=== PATIENT | female | born 1945 | race Caucasian/White ===

== ENCOUNTER 2023-06-07 19:38 | Observation (INO) | payer OTHER ==
[~2023-06-07 19:38] MED LIST: Iopamidol-370 76% 500 ML MDV (1 ML CHARGE) ONE
[2023-06-07] MEDS ORDERED: Acetaminophen 500 MG TAB ONE (20:29)
[2023-06-07 21:29] LABS: #Eosinphils 0.2 thou/uL (0.0-0.7); #Monocytes 0.6 thou/uL (0.11-0.59); #Neutrophils 4.4 thou/uL (1.40-6.50); %Basophils 0.5 % (0.0-1.0); %Eosinophils 1.9 % (0.0-10.0); %Lymphocytes 33.9 % (21.0-51.0); %Monocytes 7.8 % (0.0-10.0); %Neutrophils 55.6 % (42.0-75.0); Hematocrit 45.3 % (36.0-47.0); Hemoglobin 14.9 g/dL (12.0-16.0); Mean Corpuscular HGB CONC 32.9 g/dL (32.0-36.0); Mean Corpuscular Hemoglobin 30.8 pg (27.0-31.0); Mean Corpuscular Volume 93.6 fl (78.0-98.0); Mean Platelet Volume 10.8 fL (7.4-10.4); Platelet Count 219 10x3/uL (130-400); RBC Distribution Width 13.4 % (11.5-14.5); Red Blood Cell (RBC) Count 4.84 mill/uL (4.20-5.40)
[2023-06-07 21:56] LABS: Troponin I Less than 0.010 ng/mL (< 0.028)
[2023-06-07 22:32] LABS: Albumin 4.1 g/dL (3.4-4.8)
[2023-06-07 22:33] LABS: Chloride 105 mmol/L (98-107); Potassium 4.1 mmol/L (3.5-5.1); Sodium 138 mmol/L (136-145)
[2023-06-07 22:34] LABS: Calcium 9.4 mg/dL (7.8-10.44); Glucose 94 mg/dL (83-110)
[2023-06-07 22:35] LABS: Globulin 3.2 g/dL (2.4-3.5); Protein, Total 7.3 g/dL (5.8-8.1)
[2023-06-07 22:36] LABS: Anion Gap 15 mmol/L (10-20); Bilirubin, Total 0.5 mg/dL (0.2-1.2); Carbon Dioxide 22 mmol/L (23-31)
[2023-06-07 22:37] LABS: Alkaline Phosphatase 56 U/L (40-110)
[2023-06-07 22:38] LABS: Calc. Creatinine Clearance 0 mL/min (70-130); Estimated GFR 88
[2023-06-07 22:39] LABS: AST (SGOT) 17 U/L (5-34); BUN (Urea Nitrogen) 16 mg/dL (9.8-20.1)
[2023-06-07 22:40] LABS: ALT (SGPT) 17 U/L (8-55); Lipase 21 U/L (8-78)
[2023-06-08] MEDS ORDERED: Acetaminophen 325 MG TAB PO PRN (00:36)
[2023-06-08] MEDS ORDERED: Ondansetron ODT 4 MG TAB PO PRN (00:36)
[2023-06-08] MEDS ORDERED: Senokot S 8.6-50 MG TAB PO PRN (00:36)
[2023-06-08] MEDS ORDERED: Calcium Carbonate 500 MG ChewTAB PO PRN (00:36)
[2023-06-08 02:35] VITALS: BMI 36.0
[2023-06-08 04:24] LABS: #Basophils 0.1 thou/uL (0.0-0.2); #Eosinphils 0.2 thou/uL (0.0-0.7); #Monocytes 0.6 thou/uL (0.11-0.59); #Neutrophils 3.3 thou/uL (1.40-6.50); %Basophils 0.7 % (0.0-1.0); %Eosinophils 3.1 % (0.0-10.0); %Lymphocytes 42.1 % (21.0-51.0); %Monocytes 8.8 % (0.0-10.0); %Neutrophils 45.2 % (42.0-75.0); Hematocrit 46.6 % (36.0-47.0); Hemoglobin 15.7 g/dL (12.0-16.0); Mean Corpuscular HGB CONC 33.7 g/dL (32.0-36.0); Mean Corpuscular Hemoglobin 31.1 pg (27.0-31.0); Mean Corpuscular Volume 92.3 fl (78.0-98.0); Mean Platelet Volume 10.6 fL (7.4-10.4); Platelet Count 204 10x3/uL (130-400); RBC Distribution Width 13.3 % (11.5-14.5); Red Blood Cell (RBC) Count 5.05 mill/uL (4.20-5.40); White Blood Cell (WBC) Count 7.2 10x3/uL (4.8-10.8)
[2023-06-08 04:24] LABS: Troponin I Less than 0.010 ng/mL (< 0.028)
[2023-06-08 04:54] LABS: ALT (SGPT) 15 U/L (8-55); AST (SGOT) 15 U/L (5-34); Alkaline Phosphatase 52 U/L (40-110); Anion Gap 13 mmol/L (10-20); BUN (Urea Nitrogen) 12 mg/dL (9.8-20.1); Bilirubin, Total 0.7 mg/dL (0.2-1.2); Calc. Creatinine Clearance 104 mL/min (70-130); Calcium 9.3 mg/dL (7.8-10.44); Carbon Dioxide 20 mmol/L (23-31); Cardiac Risk 4.4 (Less than 4.5); Chloride 107 mmol/L (98-107); Cholesterol 238 mg/dl (< 200 Desired); Estimated GFR 89; Glucose 100 mg/dL (83-110); HDL Cholesterol 54 mg/dL (>60 Neg Risk); LDL Cholesterol, Calculated 154 mg/dL; Potassium 3.7 mmol/L (3.5-5.1); Sodium 136 mmol/L (136-145); Triglycerides 152 mg/dL (Less than 150); Troponin I Less than 0.010 ng/mL (< 0.028)
[2023-06-08] MEDS ORDERED: guaiFENesin 200 MG TAB PO PRN (08:43)
[2023-06-08] MEDS ORDERED: Aspirin Chewable 81 MG TAB PO SCH (09:00)
[2023-06-08] MEDS ORDERED: Famotidine 20 MG TAB PO SCH (09:00)
[2023-06-08] MEDS: Lidocaine 4% Patch TD SCH (09:56)
[2023-06-08] MEDS ORDERED: FLU VACC QS2023(65UP)/MF59C/PF 60 MCG/0.5 ML SYRINGE IM ONE (18:00)
[2023-06-08] MEDS ORDERED: Transdermal Patch Removal TOP SCH (21:00)
[2023-06-08] MEDS ORDERED: Atorvastatin Calcium 40 MG TAB PO SCH (21:00)
[2023-06-09] MEDS: Lidocaine 4% Patch TD SCH (08:24)
[2023-06-09 10:04] LABS: Magnesium 2.1 mg/dL (1.6-2.6)
[2023-06-09] MEDS ORDERED: Potassium Chloride 20 MEQ TAB PO SCH (14:30)
[2023-06-09 17:46] VITALS: BP 147/72; TEMP 97.5
[2023-06-09 18:03] LABS: Bacteria/HPF None Seen HPF (None Seen); Bilirubin Negative (Negative); Blood, Urine Negative (Negative); Clarity Clear (Clear); Glucose, Urine (Dipstick) Normal (Negative); Ketone, Urine Negative (Negative); Leukocyte 25 Leu/uL (Negative); Nitrite Negative (Negative); Protein, Urine (Dipstick) Negative (Neg-Trace); RBC/HPF 0-3 HPF (0-3); Specific Gravity, Urine 1.019 (1.002-1.036); Squamous Epithelial 0-3 HPF (0-3); Urobilinogen Normal mg/dL (Less than 2); pH, Urine 6.5 (5.0-9.0)
== END 2023-06-09 19:55 | disposition home or self-care (01) ==
LOC: ERS 19:38 → ERHOLD 06-08 01:19 → 2NO 06-08 12:08
PROVIDERS: ADMIT Student in an Organized Health Care Education/Training Program; ATTEND Internal Medicine
PROC: B246ZZZ Ultrasonography of Right and Left Heart (ICD-10-PCS; principal; 2023-06-08)
DX: R07.81 Pleurodynia (principal); R00.1 Bradycardia, unspecified; E78.00 Pure hypercholesterolemia, unspecified; S32.030A Wedge compression fracture of third lumbar vertebra, initial encounter for closed fracture; K76.0 Fatty (change of) liver, not elsewhere classified; Z88.6 Allergy status to analgesic agent; M79.604 Pain in right leg; X58.XXXA Exposure to other specified factors, initial encounter
CPT/HCPCS: 36415; 74177; 76705; 80053; 80061; 81001; 83690; 83735; 84484; 85025; 93005; 93306; 94760; G0378; Q9967